=== PATIENT | male | born 1950 | race Caucasian/White ===

== ENCOUNTER 2021-08-01 17:08 | Inpatient (IN) | payer OTHER ==
[~2021-08-01] VITALS: Ht 177.8 cm; Wt 92.2 kg
[2021-08-01 18:03] LABS: Source, Urine Clean Catch
[2021-08-01 18:05] LABS: Calcium, Ionized (POC) 1.18 mmol/L (1.10-1.46); Chloride (POC) 100 mmol/L (98-108); Creatinine (POC) 4.2 mg/dL (0.8-1.3); Glucose (ISTAT POC) 56 mg/dL (70-99); Hemoglobin (POC) 12.2 g/dL (13.5-17.5); Potassium (POC) 4.9 mmol/L (3.5-5.5); Sodium (POC) 136 mmol/L (135-148); Total CO2 (POC) 26 mmol/L (21-32)
[2021-08-01 18:05] LABS: Appearance, Urine Clear (Clear); BASOPHILS ABSOLUTE AUTO 0.06 K/mm3 (0.00-0.23); BASOPHILS PERCENT AUTO 1 % (0-2); Bilirubin, Urine Neg (Neg); Blood, Urine Neg (Neg); EOSINOPHILS ABSOLUTE AUTO 0.17 K/mm3 (0.00-0.68); EOSINOPHILS PERCENT AUTO 2 % (0-6); Glucose Qualitative, Urine 1+ (Neg); Hematocrit 34.7 % (37.0-53.0); Hemoglobin 11.7 g/dL (13.5-17.5); IMMATURE GRAN ABSOLUTE AUTO 0.08 K/mm3 (0.00-0.10); IMMATURE GRAN PERCENT AUTO 1 % (0-1); Ketones, Urine Neg (Neg); LYMPHOCYTES ABSOLUTE AUTO 1.89 K/mm3 (0.84-5.20); LYMPHOCYTES PERCENT AUTO 22 % (21-46); Leukocyte Esterase, Urine Neg (Neg); MONOCYTES ABSOLUTE AUTO 1.18 K/mm3 (0.16-1.47); MONOCYTES PERCENT AUTO 14 % (4-13); Mean Corpuscular HGB 31.4 pg (26.0-34.0); Mean Corpuscular HGB Conc 33.7 g/dL (31.5-36.5); Mean Corpuscular Volume 93 fL (80-100); Mean Platelet Volume 10.5 fL (9.1-12.4); NEUTROPHILS ABSOLUTE AUTO 5.13 K/mm3 (1.96-9.15); NEUTROPHILS PERCENT AUTO 60 % (41-73); Nitrite, Urine Neg (Neg); Platelet Count 313 K/mm3 (150-400); Protein, Urine Neg (Neg); RDW Coefficient Variation 15.8 % (11.7-14.2); RDW Standard Deviation 53.7 fL (35.1-46.3); Red Blood Cell Count 3.73 M/mm3 (4.30-5.90); Urobilinogen, Urine NORM (Normal); White Blood Cell Count 8.51 K/mm3 (4.00-11.30)
[2021-08-01 18:12] LABS: Color, Urine Pale Yellow (P-Yellow)
[2021-08-01] MEDS ORDERED: MAGNESIUM OXID500 MG PO (18:12)
[2021-08-01] MEDS ORDERED: MULVITA PO (18:13)
[2021-08-01] MEDS ORDERED: ATOR10 PO (18:16)
[2021-08-01] MEDS ORDERED: AMLO5 PO (18:17)
[2021-08-01] MEDS ORDERED: ALLO100 PO (18:18)
[2021-08-01] MEDS ORDERED: GABA100 PO (18:18)
[2021-08-01] MEDS ORDERED: CARV25 PO (18:19)
[2021-08-01] MEDS ORDERED: PRED20 PO (18:19)
[2021-08-01] MEDS ORDERED: METF500 PO (18:20)
[2021-08-01] MEDS ORDERED: NORT25 PO (18:22)
[2021-08-01] MEDS ORDERED: ZESTORETIC 20-121 EA PO (18:22)
[2021-08-01] MEDS ORDERED: THERA-D2000 UNIT PO (18:23)
[2021-08-01] MEDS ORDERED: MELATONIN5 M1 PO (18:23)
[2021-08-01] MEDS ORDERED: Vitamin B-12100 MCG PO (18:23)
[2021-08-01 18:28] LABS: Albumin, Blood 2.9 g/dL (3.4-5.0); Albumin/Globulin Ratio 0.7 (0.8-1.8); Bilirubin, Total 0.5 mg/dL (0.1-1.0); Bun/Creatinine Ratio 23.6 (12.0-20.0); Calcium, Blood 9.3 mg/dL (8.5-10.1); Creatinine, Blood 4.06 mg/dL (0.60-1.20); Globulin, Blood 3.9 g/dL (2.2-4.0); Potassium, Blood 4.9 mmol/L (3.5-5.5); Total Protein, Blood 6.8 g/dL (6.4-8.2)
--- NOTE | 2021-08-01 22:06 | NUR ---
ADMISSION REPORT RECIEVED FROM ER NURSE. PATIENT ARRIVED TO PCU 1 AND SLID OVER TO PCU BED WITH ASSISTANCE OF STAFF. ALERT AND ORIENTED. VSS, TELE READING SINUS RHYTHM 70s. PATIENT DENIES CHEST PAIN. USED URINAL AT BEDSIDE UPON ARRIVING TO PCU. PATIENT IS ORIENTED TO ROOM AND CALL LIGHT SYSTEM. BED IN LOW POSITION, CALL LIGHT IN REACH.
[2021-08-02 05:04] LABS: Bun/Creatinine Ratio 27.1 (12.0-20.0); Calcium, Blood 8.8 mg/dL (8.5-10.1); Creatinine, Blood 3.17 mg/dL (0.60-1.20); Potassium, Blood 4.9 mmol/L (3.5-5.5)
[2021-08-02] MEDS ORDERED: FINA5 PO (06:00)
[2021-08-02] MEDS ORDERED: TAMS.4ER PO (06:01)
--- NOTE | 2021-08-02 06:05 | NUR ---
SHIFT SUMMARY PATIENT ALERT AND ORIENTED x3-4, ABLE TO MAKE NEEDS KNOWN TO STAFF, USES CALL LIGHT APPROPRIATELY. VSS. PATIENT REMAINS ON RA WITH O2 SAT >90%. TELE READING SB-SR. PATIENT DENIES CHEST PAIN. NS INFUSING PER EMAR. PATIENT ABLE TO USE URINAL AT BEDSIDE INDPENDENTLY, ADEQUATE URINE OUTPUT THIS SHIFT. PATIENT DID AMBULATE INTO BATHROOM WITH ASSISTANCE OF STAFF FOR BOWEL MOVEMENT. NO OTHER SIGNIFICANT CHANGES, WILL REPORT TO DAY SHIFT RN.
--- NOTE | 2021-08-02 07:41 | NUR ---
update physician notified of pt's low bp. physician to provide orders.
--- NOTE | 2021-08-02 09:36 | NUR ---
UPDATE PHYSICIAN NOTIFIED DURING RENAL ULTRASOUND PT HAD RESIDUAL POST VOID. ORDERS FOR URINARY CATHETER PLACEMENT PER PHYSICIAN.
[2021-08-02 10:32] LABS: Source, Urine Foley catheter
[2021-08-02 10:44] LABS: Appearance, Urine Clear (Clear); Bilirubin, Urine Neg (Neg); Blood, Urine Neg (Neg); Color, Urine Yellow (P-Yellow); Glucose Qualitative, Urine Neg (Neg); Ketones, Urine Neg (Neg); Leukocyte Esterase, Urine Neg (Neg); Nitrite, Urine Neg (Neg); Protein, Urine Neg (Neg); Urobilinogen, Urine NORM (Normal)
--- NOTE | 2021-08-02 10:53 | NUR ---
UPDATE PT HAVING DIFFICULTY TOLERATING HARDEN CATHETER. PT REPORTS NO PAIN BUT THAT HE FEELS LIKE HE IS "PEEING AND HATES IT." PHYSICIAN NOTIFIED. ONE TIME ORDER OF XANAX .5 MG TO SEE IF PT HAS DECREASE IN ANXIETY REGARDING HARDEN. WILL CONT TO MONITOR.
--- NOTE | 2021-08-02 13:42 | NUR ---
UPDATE PHYSICIAN NOTIFIED PT BECOMING IMPULSIVE, GETTING OUT OF BED WITHOUT CALLING. ABLE TO RE-DIRECT AT THIS TIME. PT'S SPOUSE INFORMED THIS RN THAT PT DRINKS DAILY. PT STATED HE DRINKS "1/2 PINT OF WHISKEY AND BEER A DAY." ORDERS FOR BANANA BAG TO RUN DAILY AND NS AT 75 ML/HR AFTER LAST BAG OF NS AT 150 ML/HR. PHYSICIAN NOTIFIED OF PT'S STABLE BLOOD SUGARS, ORDERS FOR PT TO BE BEFORE BREAKFAST GLUCOSE CHECK W/ LOW SLIDING SCALE INSULIN COVERAGE IF NEEDED. WILL CONT TO MONITOR.
--- NOTE | 2021-08-02 17:34 | NUR ---
UPDATE/SHIFT SUMMARY PT ALERT AND ORIENTED X 4. HR STABLE. BP STABLE, MAP ABOVE 65. SEE NOTES REGARDING HYPOTENSION THIS AM. NO CP OR PRESSURE. OXYGEN SATURAITON MAINTAINED ABOVE 92% ON RA. PT IMPULSIVE, BED ALARM IN PLACE FOR PT SAFETY. CIWA STABLE, SEE EHR. HARDEN PULLED WHEN PT TRANSFERRED OUT OF BED, PT BLEEDING AT URETHRAL SITE, URINE RED IN COLOR. PHYSICIAN NOTIFIED. PT HAVING URETHRAL DISCOMFORT PRIOR TO HARDEN BEING PULLED. PHYSICIAN AWARE. ORDERS FOR UROJET AND 14 F COUDE USED IN SECOND HARDEN ADMINISTRATION. PT REPORTS TO BE ANXIOUS AT TIMES. PHYSICIAN AWARE, SEE EMAR FOR ORDERS. CALL LIGHT WITHIN REACH. WILL CONT TO MONITOR UNTIL REPORT GIVEN TO NIGHTSHIFT RN.
--- NOTE | 2021-08-02 18:00 | NUR ---
UPDATE\ PHYSICIAN NOTIFIED PT INCREASING IN AGGITATION/DISCOMFORT WITH HARDEN CATHETER. ORDERS FOR ONE TIME DOSE OF LIBRIUM, PLAN TO SEE IF PT HAS DECREASE IN AGITATION IF AGITATION IS D/T ETOH W/D. ORDERS FOR 25 MCG OF FENTANYL TO ASSIST IN DECREASE IN DISCOMFORT OF CATHETER. PHYSICIAN ALSO NOTIFIED OF RED COLOR OF URINE. ORDERS FOR CBC IN AM. WILL CONT TO MONITOR.
--- NOTE | 2021-08-02 18:52 | NUR ---
UPDATE PT AGITATED GETTING OUT OF BED. PT STATES HE DOES NOT HAVE PAIN FROM CATHETER BUT IS FEELING THE URGE TO PEE CONSTANTLY. PT VERY AGITATED D/T THIS. MEDICATED WITH FENTANYL PER PHYSICIAN ORDER. PT INSTRUCTED NOT TO ATTEMPT TO GET OUT OF BED WITHOUT ASSISTANCE, PT MAY ACCIDENTALLY PULL CATHETER TUBING AGAIN. PT STATES UNDERSTANDING. BED ALARM IN PLACE.
--- NOTE | 2021-08-02 22:30 | NUR ---
CATHETER IRRIGATION PT CONTINUES TO HAVE CRANBERRY COLORED URINE DRAINING IN CATHETER. CATHETER IRRIGATED IN ATTEMPT OF REMOVING ANY CLOTS. APPROXIMATELY 300mls IN/OUT. NO CLOTES NOTED DURING IRRIGATION. PATIENT TOLERATED WELL.
[2021-08-03 04:09] LABS: BASOPHILS ABSOLUTE AUTO 0.05 K/mm3 (0.00-0.23); BASOPHILS PERCENT AUTO 1 % (0-2); EOSINOPHILS ABSOLUTE AUTO 0.13 K/mm3 (0.00-0.68); EOSINOPHILS PERCENT AUTO 2 % (0-6); Hematocrit 35.5 % (37.0-53.0); Hemoglobin 11.8 g/dL (13.5-17.5); IMMATURE GRAN ABSOLUTE AUTO 0.04 K/mm3 (0.00-0.10); IMMATURE GRAN PERCENT AUTO 1 % (0-1); LYMPHOCYTES ABSOLUTE AUTO 1.84 K/mm3 (0.84-5.20); LYMPHOCYTES PERCENT AUTO 28 % (21-46); MONOCYTES ABSOLUTE AUTO 0.85 K/mm3 (0.16-1.47); MONOCYTES PERCENT AUTO 13 % (4-13); Mean Corpuscular HGB 31.2 pg (26.0-34.0); Mean Corpuscular HGB Conc 33.2 g/dL (31.5-36.5); Mean Corpuscular Volume 94 fL (80-100); Mean Platelet Volume 10.5 fL (9.1-12.4); NEUTROPHILS ABSOLUTE AUTO 3.77 K/mm3 (1.96-9.15); NEUTROPHILS PERCENT AUTO 57 % (41-73); Platelet Count 318 K/mm3 (150-400); RDW Coefficient Variation 15.9 % (11.7-14.2); RDW Standard Deviation 54.4 fL (35.1-46.3); Red Blood Cell Count 3.78 M/mm3 (4.30-5.90); White Blood Cell Count 6.68 K/mm3 (4.00-11.30)
--- NOTE | 2021-08-03 06:19 | NUR ---
SHIFT SUMMARY PATIENT ALERT, ANSWERS ORIENTATION QUESTIONS APPROPRIATELY. FORGETFUL AND IMPULSIVE AT TIMES. BED ALARM ON FOR SAFETY. VSS, PATIENT ON RA WITH O2 SAT >90%. CIWAs NEGATIVE OVERNIGHT PATIENT SLEPT FOR MAJORITY OF SHIFT. HARDEN IN PLACE DRAINING CRANBERRY COLORED URINE, IRRIGATED THIS SHIFT. NO CLOTS NOTED. SEE PREVIOUS NOTE. NO OTHER SIGNIFICANT CHANGES THIS SHIFT. WILL REPORT TO DAY SHIFT RN.
--- NOTE | 2021-08-03 07:31 | NUR ---
CARE ASSUMPTION THIS RN ASSUMED CARE AT 0700 FROM [facility]. PATIENT IS ALERT AND ORIENTED X4. PATIENT DID GET THE MONTH WRONG AT FIRST AND THEN CORRECTED HIMSELF STATING IT IS JULY NOT JUNE. PERROLIVA. VSS. TELE SINUSBRADY AT 56. PATIENT REPORTS NO PAIN. PATIENT REPORTS NO CHEST PAIN. STRONG RADAIL PULSES AND PEDIS. CAP REIFLL <3SECONDS. NO EDEMA NOTED. PATIENT REPROTS NO SHORTNESS OF BREATH. COARSE LUNG SOUNDS UPPER LOBES CLEAR/DIM LOWER LOBES. PATIENT IS ON RA. SPO2 >90%. ABD IS SOFT NONTENDER AND ACTIVE. SKIN IS CLEAN DRY AND INTACT. HARDEN IS DRAINING WITH GRAVITY CRANBERRY COLORATION. PATIENT HAS A HISTORY OF [facility], AND PER REPORT FROM [facility]GG BREAKER RN IS THAT YESTEDAY DURING DAY SHIFT PATIENT WAS PULLING AT HARDEN. SEE SHIFT ASSESSMENT FOR FURTHER DETAILS. PATIENT HAS NO QUESTIONS OR CONCERNS BESIDES WANTING TO KNOW WHEN HE CAN GO HOME. THIS RN INFORMED HIM THAT IS SOMETHING WE CAN DISCUSS THIS MORNING WHEN THE DOCTOR ROUNDS. CALL LIGHT IS WITHIN REACH, BED ALARM ON, AND BED IN LOWEST POSITION. WILL CONTINUE TO MONITOR AND PROVIDE CARE.
[2021-08-03 09:28] LABS: Bun/Creatinine Ratio 31.5 (12.0-20.0); Creatinine, Blood 1.65 mg/dL (0.60-1.20); Potassium, Blood 4.4 mmol/L (3.5-5.5)
--- NOTE | 2021-08-03 13:36 | NUR ---
UPDATE MD ADAM IN TO SEE PATIENT AND DISCUSSED PLAN OF CARE. PATIENT IS BACK TO BASELINE AND IS WANTING TO GO HOME. MD ADAM DISCUSSEED GOING HOME WITH THE HARDEN CATH TO HELP WITH HIS URINARY RENTION AND TO FOLLOW UP WITH HOME HEALTH AND A UROLOGIST AND PCP. PATIENT AGREED TO GOING HOME WITH HARDEN CATH AND THIS RN EDUCATED THE PATIENT ON NOT PULLING AT IT BECAUSE THAT COULD CAUSE TRAUMA. THIS RN EDUCATED HIM ON KEEPING IT CLEAN AND HOW TO COLT THE CATHETER. THIS RN EDCUATED HIM ON KEEPING IT BELOW HIS BLADDER TO DRAIN WITH GRAVITY. THIS RN EDUCATED HIM THAT IF HE HAS MINIMAL OUTPUT FOR THE DAY TO CONTACT (LESS THAN 300 A DAY) HIS PRIMARY CARE PROVIDER. PATIENT VERABLIZED UNDERSTANDING. THIS RN EDUCATED HIM THAT WE WOULD SWITCH HIM TO A LEG BAG AND THIS RN WILL EDCUATE HIM ON IT BEFORE DISCHARGE. IV REMOVED. PATIENT IN NO DISTRESS. VSS. AWAITING TO FINISH DISCHARGE PACKET AND FOR HIS RIDE.
--- NOTE | 2021-08-03 15:00 | NUR ---
MEDICATIONS FAXED TO [facility] THIS RN FAXED THE MEDICATIONS TO THE [facility].
--- NOTE | 2021-08-03 15:17 | NUR ---
DISCHARGE EDUCATION THIS RN WENT OVER DISCHARGE EDUCATION WITH THE PATIENT. THIS RN EDUCATED ON THERE BEING NO NEW MEDICATIONS AND WHICH MEDICATION IS BEING STOPPED, THE LISINOPRIL. PATIENT EDUCATED ON CATH CARE AND HOW TO SWITCH THE BAG OVER. PATIENT VERBALIZED UNDERSTANDING AND WAS GIVEN EDUCATIONAL PRINT OUT MATERIAL. PATIENT AWAITING FOR TO GET HERE TO LPN RN PATIENT. CALL LIGHT WITHIN REACH. PATIENT IN NO DISTRESS.
== END 2021-08-03 19:55 | disposition home health service (06) | DRG 683 ==
LOC: ER 17:08 → PCU 19:44
PROVIDERS: Emergency Medicine; Internal Medicine; ADMIT Internal Medicine
PROC: 0T9B70Z Drainage of Bladder with Drainage Device, Via Natural or Artificial Opening (ICD-10-PCS; principal; 2021-08-03)
DX: N17.9 Acute kidney failure, unspecified (principal); T83.83XA Hemorrhage due to genitourinary prosthetic devices, implants and grafts, initial encounter; E87.5 Hyperkalemia; I12.9 Hypertensive chronic kidney disease with stage 1 through stage 4 chronic kidney disease, or unspecified chronic kidney disease; N18.30 Chronic kidney disease, stage 3 unspecified; E11.22 Type 2 diabetes mellitus with diabetic chronic kidney disease; E78.5 Hyperlipidemia, unspecified; R45.1 Restlessness and agitation; D63.1 Anemia in chronic kidney disease; R33.9 Retention of urine, unspecified; R31.9 Hematuria, unspecified; Z79.899 Other long term (current) drug therapy; Y84.6 Urinary catheterization as the cause of abnormal reaction of the patient, or of later complication, without mention of misadventure at the time of the procedure
CPT/HCPCS: 36415; 51701; 51703; 76770; 80047; 80048; 80053; 81003; 82947; 84132; 85014; 85025; 93005; 93010; 99285-25; A9270; J1644; J3010; J3411; J3475; J7030; J7040; J7042

== ENCOUNTER 2023-01-25 12:42 | Emergency (ER) | payer OTHER ==
[~2023-01-25] VITALS: Ht 175.3 cm; Wt 90.7 kg
[~2023-01-25 12:42] MED LIST: ALLO100 PO; AMLO5 PO; ATOR10 PO; CARV25 PO; FINA5 PO; GABA100 PO; MAGNESIUM OXID500 MG PO; MELATONIN5 M1 PO; METF500 PO; MULVITA PO; NORT25 PO; PRED20 PO; TAMS.4ER PO; THERA-D2000 UNIT PO; Vitamin B-12100 MCG PO; ZESTORETIC 20-121 EA PO
[2023-01-25 13:13] LABS: BASOPHILS ABSOLUTE AUTO 0.03 K/mm3 (0.00-0.23); BASOPHILS PERCENT AUTO 1 % (0-2); EOSINOPHILS ABSOLUTE AUTO 0.03 K/mm3 (0.00-0.68); EOSINOPHILS PERCENT AUTO 1 % (0-6); Mean Corpuscular HGB 32.3 pg (26.0-34.0); Mean Corpuscular Volume 90 fL (80-100); RDW Coefficient Variation 17.2 % (11.7-14.2); RDW Standard Deviation 52.8 fL (35.1-46.3); Red Blood Cell Count 2.79 M/mm3 (4.30-5.90); White Blood Cell Count 3.81 K/mm3 (4.00-11.30)
[2023-01-25 13:18] LABS: IMMATURE GRAN PERCENT AUTO 0 % (0-1); LYMPHOCYTES ABSOLUTE AUTO 2.22 K/mm3 (0.84-5.20); LYMPHOCYTES PERCENT AUTO 58 % (21-46); MONOCYTES ABSOLUTE AUTO 0.36 K/mm3 (0.16-1.47); MONOCYTES PERCENT AUTO 9 % (4-13); NEUTROPHILS ABSOLUTE AUTO 1.17 K/mm3 (1.96-9.15); NEUTROPHILS PERCENT AUTO 31 % (41-73)
[2023-01-25 13:20] LABS: Platelet Count 14 K/mm3 (150-400)
[2023-01-25 13:22] LABS: Albumin, Blood 3.3 g/dL (3.4-5.0); Albumin/Globulin Ratio 0.8 (0.8-1.8); Bilirubin, Total 0.7 mg/dL (0.1-1.0); Creatinine, Blood 1.27 mg/dL (0.60-1.20); Globulin, Blood 3.9 g/dL (2.2-4.0); Potassium, Blood 3.9 mmol/L (3.5-5.5); Total Protein, Blood 7.2 g/dL (6.4-8.2)
[2023-01-25 14:52] LABS: Hematocrit 24.9 % (37.0-53.0); Hemoglobin 8.7 g/dL (13.5-17.5); Mean Corpuscular HGB 31.4 pg (26.0-34.0); Mean Corpuscular HGB Conc 34.9 g/dL (31.5-36.5); Mean Corpuscular Volume 90 fL (80-100); RDW Coefficient Variation 17.2 % (11.7-14.2); RDW Standard Deviation 53.5 fL (35.1-46.3); Red Blood Cell Count 2.77 M/mm3 (4.30-5.90); White Blood Cell Count 3.29 K/mm3 (4.00-11.30)
[2023-01-25 15:30] VITALS: BP 132/66
[2023-01-25 15:49] LABS: Platelet Count 13 K/mm3 (150-400)
[2023-01-25 16:28] LABS: BAND PERCENT MAN 13 % (0-8); BASOPHILS PERCENT MAN 0 % (0-2); EOSINOPHILS ABSOLUTE MAN 0.06 K/mm3 (0.00-0.68); EOSINOPHILS PERCENT MAN 2 % (0-6); LYMPHOCYTES % ATYPICAL MANUAL 3 % (0-0); LYMPHOCYTES ABSOLUTE MAN 1.44 K/mm3 (0.84-5.20); LYMPHOCYTES PERCENT MAN 41 % (21-46); METAMYELOCYTE ABSOLUTE MAN 0.36 K/mm3 (0.00-0.00); METAMYELOCYTE PERCENT MAN 11 % (0-0); MONOCYTES ABSOLUTE MAN 0.13 K/mm3 (0.16-1.47); MONOCYTES PERCENT MAN 4 % (4-13); NEUTROPHILS ABSOLUTE MAN 1.01 K/mm3 (1.96-9.15); SEG NEUTROPHILS PERCENT MAN 18 % (41-73); TOTAL CELLS COUNTED 100
[2023-01-25 16:29] LABS: BLASTS PERCENT MAN 1 % (0-0); MYELOCYTE ABSOLUTE MAN 0.23 K/mm3 (0.00-0.00); MYELOCYTE PERCENT MAN 7 % (0-0)
== END 2023-01-25 15:45 | disposition home or self-care (01) ==
LOC: ER 12:42
PROVIDERS: Emergency Medicine; Family Medicine
DX: D61.818 Other pancytopenia (principal); D69.6 Thrombocytopenia, unspecified; I12.9 Hypertensive chronic kidney disease with stage 1 through stage 4 chronic kidney disease, or unspecified chronic kidney disease; E11.22 Type 2 diabetes mellitus with diabetic chronic kidney disease; N18.9 Chronic kidney disease, unspecified; F17.210 Nicotine dependence, cigarettes, uncomplicated; Z79.84 Long term (current) use of oral hypoglycemic drugs; Z79.899 Other long term (current) drug therapy
CPT/HCPCS: 70450; 71046; 80053; 83880; 84484; 85025; 93005; 93010; 99285-25